=== PATIENT | female | born 1975 | race Caucasian/White ===

== ENCOUNTER → 2016-11-22 | Outpatient (CLI) | payer BC ==
[~2016-11-22] MED LIST: B-COTAB18; ESCI1TAB9 PO; FLUT27.5 NAE; INTE1KIT4; MULTTAB58 PO; NAPR-943; PRAM0.129 PO; TAMO20TA47 PO
--- NOTE | 2016-11-23 14:24 | MAMMOGRAPHY REPORT ---
BILATERAL DIGITAL SCREENING MAMMOGRAM TOMOSYNTHESIS WITH CAD: 11/22/2016 CLINICAL HISTORY: Routine screening. Patient has no complaints. TECHNIQUE: Breast tomosynthesis in addition to standard 2D mammography was performed. Current study was also evaluated with a Computer Aided Detection (CAD) system. COMPARISON: Comparison is made to exams dated: 11/20/2015 mammogram - [facility], 07/31/2014 mammogram, and 06/30/2013 mammogram - [facility]. BREAST COMPOSITION: The tissue of both breasts is heterogeneously dense, which may obscure small ma sses. FINDINGS: A 5 mm lobulated mass in the 11:00 anterior left breast is unchanged in size dating back t o at least 07/31/2014 and with greater than 2 years of stability is considered benign. No new suspi cious mass, architectural distortion or cluster of microcalcifications is seen. IMPRESSION: ACR BI-RADS CATEGORY 1: NEGATIVE There is no mammographic evidence of malignancy. A 1 year screening mammogram is recommended. The p atient will receive written notification of the results. Approximately 10% of breast cancers are not detected with mammography. A negative mammographic repor t should not delay biopsy if a clinically suggestive mass is present. Zahraa Woody M.D. ay/:11/22/2016 16:43:16 Air Motor Repairer: Staci ALMONTE)([place]erry)([place]), [facility] letter sent: Normal 1/2 BI-RADS Code: ACR BI-RADS Category 1: Negative
== END | disposition home or self-care (01) ==
LOC: C.MAMM 15:29
PROVIDERS: ATTEND Internal Medicine
DX: Z12.31 Encounter for screening mammogram for malignant neoplasm of breast (principal)

== ENCOUNTER → 2017-01-23 | Outpatient (CLI) | payer BC ==
[2017-01-23 09:33] LABS: BASO % 0.4 %; BASO ABS # 0.03 K/uL (0-0.2); COMPLETE YES; EOS % 1.1 %; HEMATOCRIT 38.9 % (37-47); IG% 0.6 %; LYMPH % 22.7 %; MEAN CELL VOLUME 87.6 fL (80-100); MEAN CORPUSCULAR HEMOGLOBIN 31.1 pg (25-34); MEAN CORPUSCULAR HGB CONC 35.5 g/dl (32-36); MEAN PLATELET VOLUME 10.3 fL (7.4-10.4); MONO % 14.2 %; PLATELET COUNT 230 K/uL (130-400); RED BLOOD COUNT 4.44 M/uL (4.2-5.4); WHITE BLOOD COUNT 7.04 K/uL (4.8-10.8)
[2017-01-23 09:49] LABS: ALT/SGPT 33 U/L (12-78); BLOOD UREA NITROGEN 9 mg/dl (7-18); BUN/CREATININE RATIO 12.1 (10-20); CALCIUM 8.6 mg/dl (8.5-10.1); CARBON DIOXIDE 24 mmol/L (21-32); CHLORIDE 105 mmol/L (98-107); CHOLESTEROL 179 mg/dl (0-200); CREATININE 0.73 mg/dl (0.60-1.20); GLUCOSE 97 mg/dl (70-99); POTASSIUM 3.8 mmol/L (3.5-5.1); SODIUM 138 mmol/L (136-145)
[2017-01-23 09:53] LABS: ALB/GLOB RATIO 1.3 (0.9-2); ALKALINE PHOSPHATASE 62 U/L (45-117); AST/SGOT 22 U/L (15-37); CHOLESTEROL/HDL RATIO 5.4; HDL CHOLESTEROL 33 mg/dl; LDL CHOLESTEROL CALCULATED 84 mg/dl; TRIGLYCERIDES 311 mg/dl (0-150); VERY LOW DENSITY LIPOPROT CALC 62 mg/dl
== END | disposition home or self-care (01) ==
LOC: C.LAB1850 08:13
PROVIDERS: ATTEND Internal Medicine
DX: Z13.220 Encounter for screening for lipoid disorders (principal); G35 Multiple sclerosis; E55.9 Vitamin D deficiency, unspecified

== ENCOUNTER → 2017-08-18 | Outpatient (CLI) | payer BC ==
--- NOTE | 2017-08-18 10:49 | DIAGNOSTIC IMAGING REPORT ---
LEFT INGUINAL ULTRASOUND CLINICAL HISTORY: R59.9 Lymph node enlargement Suspected inguinal lymph node enlarged COMPARISON STUDY: None. FINDINGS: There are few small left inguinal lymph nodes which do not correspond to the palpable abnormality. These have a benign appearance and measure up to 1.4 x 0.4 cm in size. At the patient's palpable abnormality there is a subdermal 7 x 6 x 3 mm hypoechoic focus with surrounding increased echogenicity within the fat consistent with inflammatory change. IMPRESSION: There is a subdermal 7 x 6 x 3 mm hypoechoic focus within the left inguinal region which corresponds to the patient's palpable abnormality. This does not represent a lymph node. There is increased echogenicity seen within the surrounding fat suggestive of inflammatory change. Therefore, this could represent an infected gland/epidermal inclusion cyst. Clinical follow-up recommended to ensure resolution. Electronically signed by: Orestes Betancur M.D. 08/18/2017 10:48 AM Dictated Date/Time: 08/18/2017 10:44 AM
== END | disposition home or self-care (01) ==
LOC: C.ULTR 09:44
PROVIDERS: ATTEND Physician Assistant
DX: R59.9 Enlarged lymph nodes, unspecified (principal); R93.5 Abnormal findings on diagnostic imaging of other abdominal regions, including retroperitoneum

== ENCOUNTER → 2017-09-25 | Outpatient (CLI) | payer BC ==
[~2017-09-25] MED LIST changes: -TAMO20TA47 PO; +TAMO20TA9 PO
== END | disposition home or self-care (01) ==
LOC: C.PAPS 09:46
PROVIDERS: ATTEND Obstetrics & Gynecology
DX: Z01.419 Encounter for gynecological examination (general) (routine) without abnormal findings (principal)

== ENCOUNTER → 2017-11-27 | Outpatient (CLI) | payer OTHER ==
--- NOTE | 2017-11-28 14:37 | MAMMOGRAPHY REPORT ---
BILATERAL DIGITAL SCREENING MAMMOGRAM TOMOSYNTHESIS WITH CAD: 11/27/2017 CLINICAL HISTORY: Routine screening. TECHNIQUE: Breast tomosynthesis in addition to standard 2D mammography was performed. Current study was also evaluated with a Computer Aided Detection (CAD) system. COMPARISON: Comparison is made to exams dated: 11/22/2016 mammogram, 11/20/2015 mammogram - [facility], 07/31/2014 mammogram, and 06/30/2013 mammogram - [facility]. BREAST COMPOSITION: The tissue of both breasts is heterogeneously dense, which may obscure small mas ses. FINDINGS: The glandular pattern is similar to prior mammograms. No developing mass, architectural d istortion or cluster of suspicious microcalcifications is seen in either breast. IMPRESSION: ACR BI-RADS CATEGORY 2: BENIGN There is no mammographic evidence of malignancy. A 1 year screening mammogram is recommended. The pa tient will receive written notification of the results. Approximately 10% of breast cancers are not detected with mammography. A negative mammographic report should not delay biopsy if a clinically suggestive mass is present. Zahraa Woody M.D. ay/:11/27/2017 16:06:37 Distance Learning Coordinator: Pilar ALMONTE)(Merry), [facility] letter sent: Normal 1/2 BI-RADS Code: ACR BI-RADS Category 2: Benign
== END | disposition home or self-care (01) ==
LOC: C.MAMM 15:29
PROVIDERS: ATTEND Internal Medicine
DX: Z12.31 Encounter for screening mammogram for malignant neoplasm of breast (principal)